=== PATIENT | male | born 1995 | race Caucasian/White ===

== ENCOUNTER 2017-07-10 18:36 | Emergency (ER) | payer BC ==
[2017-07-10 21:54] LABS: ADD MAN DIFF? NO
[2017-07-10 21:56] LABS: BASOPHILS % 0.2 % (0.0-2.0); EOSINOPHILS % 0.2 % (0.0-7.0); HEMATOCRIT 50.8 % (42.0-52.0); HEMOGLOBIN 17.4 g/dl (14.0-18.0); LYMPHOCYTES % 21.7 % (15.0-51.0); MEAN CORPUSCULAR HEMOGLOBIN 29.2 pg (29.0-33.0); MEAN CORPUSCULAR HGB CONC 34.3 g/dl (32.0-37.0); MEAN CORPUSCULAR VOLUME 85.2 fl (82.0-101.0); MEAN PLATELET VOLUME 9.4 fl (7.4-10.4); MONOCYTE # 0.5 10^3/ul (0.3-0.9); MONOCYTES % 5.3 % (0.0-11.0); NEUTROPHIL # 6.6 10^3/ul (1.6-7.5); NEUTROPHILS % 72.4 % (39.0-77.0); PLATELET COUNT 241 10^3/UL (140-415); RED BLOOD COUNT 5.96 10^6/ul (4.70-6.10); RED CELL DISTRIBUTION WIDTH 12.7 % (11.5-14.5)
[2017-07-10 21:56] LABS: WHITE BLOOD COUNT 9.1 10^3/ul (4.8-10.8)
[2017-07-10 22:17] LABS: ALANINE AMINOTRANSFERASE 34 IU/L (13-69); ALBUMIN 4.8 g/dl (3.3-4.9); ALKALINE PHOSPHATASE 80 IU/L (42-121); ANION GAP 19 (8-16); ASPARTATE AMINO TRANSFERASE 30 IU/L (15-46); BILIRUBIN,INDIRECT 0.5 mg/dl (0-1.1); BILIRUBIN,TOTAL 0.5 mg/dl (0.2-1.3); BLOOD UREA NITROGEN 14 mg/dl (7-20); CALCIUM 9.8 mg/dl (8.4-10.2); CARBON DIOXIDE 31 mmol/L (21-31); CHLORIDE 99 mmol/L (97-110); CREATININE 1.02 mg/dl (0.61-1.24); GLUCOSE 107 mg/dl (70-220); POTASSIUM 3.8 mmol/L (3.5-5.1); SODIUM 145 mmol/L (135-144)
[2017-07-10] MEDS: SOD CHLORIDE 0.9% 1,000 ML IV (22:18)
[2017-07-10 22:33] LABS: FREE T4 (FREE THYROXINE) 1.39 ng/dl (0.79-2.35)
[2017-07-10 22:34] LABS: FREE T3 4.68 pg/ml (2.77-5.27); T4 (THYROXINE) 11.5 ug/dl (5.5-11.0)
[2017-07-10 22:48] LABS: TRIIODOTHYRONINE 1.36 ng/ml (0.97-1.69)
== END 2017-07-10 23:33 | disposition home or self-care (01) ==
LOC: FTE 23:33
DX: R53.83 Other fatigue (principal); Z85.850 Personal history of malignant neoplasm of thyroid
CPT/HCPCS: 80053; 84436; 84439; 84443; 84480; 84481; 85025; 93005; 99284-25